=== PATIENT | male | born 2000 | race Caucasian/White ===

== ENCOUNTER 2021-10-27 11:28 | Emergency (ER) | payer OTHER ==
[~2021-10-27] VITALS: Ht 182.9 cm; Wt 81.6 kg
[2021-10-27] MEDS ORDERED: IV NS 0.9% 1,000 ML BAG IV ONE (11:30)
[2021-10-27] MEDS ORDERED: ONDANSETRON HCL/PF 4 MG/2 ML VIAL IVP ONE (11:30)
--- NOTE | 2021-10-27 11:41 | NUR ---
To ER bed 13, nausea and vomiting x 12 hrs,tested (+) to fentanyl this morning but denies he uses them, aaox3, breathing even and non labored, awaiting md tolliver
[2021-10-27 12:23] LABS: CALCIUM, SERUM 9.4 mg/dL (8.5-10.1); CREATININE 1.2 mg/dL (0.6-1.3); POTASSIUM 3.9 mmol/L (3.5-5.1)
[2021-10-27 12:26] LABS: BASOPHILS % (AUTO) 0.4 % (0.0-2.0); EOSINOPHILS % (AUTO) 0.3 % (0.0-6.0); HEMATOCRIT 43 % (39-51); HEMOGLOBIN 14.7 g/dL (13.5-17.5); LYMPHOCYTES % (AUTO) 19.1 % (20.0-44.0); MEAN CORPUSCULAR HGB CONC 34 g/dl (31.0-36.0); MEAN CORPUSCULAR VOLUME 91 fL (80-96); MONOCYTES # (AUTO) 0.8 K/uL (0.1-1.30); MONOCYTES % (AUTO) 7.2 % (2.0-12.0); NEUTROPHILS # (AUTO) 7.7 K/uL (1.8-8.9); PLATELET COUNT (AUTO) 237 K/uL (150-450); RED BLOOD CELL COUNT(AUTO) 4.67 MIL/uL (4.5-6.0); WHITE BLOOD COUNT (AUTO) 10.5 K/uL (4.3-11.0)
[2021-10-27 12:29] LABS: ALBUMIN 4.5 g/dL (3.4-5.0); BILIRUBIN,DIRECT 0.1 mg/dL (0.0-0.2); BILIRUBIN,TOTAL 0.4 mg/dL (0.2-1.0); TOTAL PROTEIN, SERUM 8.1 g/dL (6.4-8.2)
[2021-10-27] MEDS ORDERED: MAG HYDROX/AL HYDROX/SIMETH 30 ML UDC PO ONE (12:30)
[2021-10-27] MEDS ORDERED: LIDOCAINE VISCOUS 2% UD 15 ML UDC MM ONE (12:30)
[2021-10-27] MEDS ORDERED: FAMOTIDINE/PF INJ 20 MG/2 ML VIAL IV ONE ×2 (12:30→12:39)
[2021-10-27] MEDS ORDERED: LIDOCAINE VISCOUS 2% UD 15 ML UDC ONE (12:39)
[2021-10-27] MEDS ORDERED: ONDANSETRON HCL/PF 4 MG/2 ML VIAL ONE (12:39)
[2021-10-27] MEDS ORDERED: MAG HYDROX/AL HYDROX/SIMETH 30 ML UDC ONE (12:39)
--- NOTE | 2021-10-27 12:43 | NUR ---
URINE COLLECTED AND SENT TO LAB
[2021-10-27] MEDS ORDERED: NALO4SPR BNOSTRILS (13:01)
[2021-10-27] MEDS ORDERED: FAMO-131 PO (13:01)
[2021-10-27] MEDS ORDERED: ONDA4TAB5 PO (13:01)
[2021-10-27 13:27] LABS: BILIRUBIN,URINE SMALL (NEGATIVE); COLOR,URINE YELLOW (YELLOW); LEUKOCYTE ESTERASE ,URINE NEGATIVE (NEGATIVE); NITRITE, URINE NEGATIVE (NEGATIVE); PH,URINE 6.5 (5.0-8.0); PROTEIN,URINE 100 mg/dl (NEGATIVE); UGLUCOSE NEGATIVE (NEGATIVE); UROBILINOGEN,URINE 0.2 EU/dL (0.2)
[2021-10-27 13:45] LABS: BACTERIA,URINE Rare /HPF (None Seen); SQUAMOUS EPITHELIAL CELL,UR 0-2 /HPF (None Seen); WBC,URINE 0-2 /HPF (0-3)
[2021-10-27 13:46] LABS: RBC,URINE 0-2 /HPF (0-2)
--- NOTE | 2021-10-27 13:55 | NUR ---
IV removed. Catheter intact and site benign. Pressure and 4x4 applied to site. No bleeding noted.Patient discharged to home in stable condition. Written and verbal after care instructions given. Patient verbalizes understanding of instruction.
[2021-10-27 14:13] VITALS: BP 127/88
--- NOTE | 2021-11-06 10:39 | NUR ---
ADDENDUM 1000ML NORMAL SALINE ADMINISTERED 1241 L AC 20G, END TIME 1340.
== END 2021-10-27 14:14 | disposition home or self-care (01) ==
LOC: ER 11:30
DX: R10.13 Epigastric pain (principal); R11.2 Nausea with vomiting, unspecified; K50.90 Crohn's disease, unspecified, without complications; F12.90 Cannabis use, unspecified, uncomplicated; F11.20 Opioid dependence, uncomplicated
CPT/HCPCS: 36415; 80048; 80076; 81001; 83690; 85025; 96361; 96374; 96375; 99284; J2405; J3490; J7030

== ENCOUNTER 2021-11-26 08:27 | Emergency (ER) | payer OTHER ==
[~2021-11-26] VITALS: Ht 182.9 cm; Wt 77.6 kg
[~2021-11-26 08:27] MED LIST: FAMO-131 PO; NALO4SPR BNOSTRILS; ONDA4TAB5 PO
--- NOTE | 2021-11-26 08:27 | NUR ---
PT BIB FRIENDS C/O OD ON FENTANYL AND CODEINE. PT IS AAOX1, HOOKED TO O2 VIA RB AT 15LPM, HOOKED TO V/S MONITOR, KEPT RESTED AND COMFORTABLE. WILL CONTINUE TO MONITOR.
[2021-11-26] MEDS ORDERED: NALOXONE PREFILLED SYRINGE 2 MG/2 ML SYRINGE ONE (08:30)
--- NOTE | 2021-11-26 08:30 | NUR ---
IV LINE ESTABLISHED BLOOD DRAWN AND SENT TO LAB.
--- NOTE | 2021-11-26 08:30 | NUR ---
NARCAN 2 MG AND ZOFRAN 4MG IVP GIVEN ORDERED BY .
[2021-11-26] MEDS ORDERED: ONDANSETRON HCL/PF 4 MG/2 ML VIAL ONE (08:32)
--- NOTE | 2021-11-26 08:48 | NUR ---
URINE SPECIMEN COLLECTED AND SENT TO LAB.
[2021-11-26 09:13] LABS: BILIRUBIN,URINE NEGATIVE (NEGATIVE); COLOR,URINE YELLOW (YELLOW); LEUKOCYTE ESTERASE ,URINE NEGATIVE (NEGATIVE); NITRITE, URINE NEGATIVE (NEGATIVE); PH,URINE 5.5 (5.0-8.0); PROTEIN,URINE 100 mg/dl (NEGATIVE); UGLUCOSE >=1000 mg/dL (NEGATIVE); UROBILINOGEN,URINE 0.2 EU/dL (0.2)
[2021-11-26 09:13] LABS: BASOPHILS % (AUTO) 0.1 % (0.0-2.0); EOSINOPHILS % (AUTO) 0.1 % (0.0-6.0); HEMATOCRIT 44 % (39-51); LYMPHOCYTES # (AUTO) 1.8 K/uL (0.8-4.8); LYMPHOCYTES % (AUTO) 7.2 % (20.0-44.0); MEAN CORPUSCULAR HGB CONC 34 g/dl (31.0-36.0); MEAN CORPUSCULAR VOLUME 91 fL (80-96); MONOCYTES # (AUTO) 3.1 K/uL (0.1-1.30); MONOCYTES % (AUTO) 12.2 % (2.0-12.0); NEUTROPHILS # (AUTO) 20.4 K/uL (1.8-8.9); NEUTROPHILS % (AUTO) 80.4 % (43.0-81.0); PLATELET COUNT (AUTO) 385 K/uL (150-450); RED BLOOD CELL COUNT(AUTO) 4.88 MIL/uL (4.5-6.0); WHITE BLOOD COUNT (AUTO) 25.4 K/uL (4.3-11.0)
[2021-11-26 09:30] LABS: BACTERIA,URINE 2+ /HPF (None Seen)
--- NOTE | 2021-11-26 11:51 | NUR ---
PATIENT IS AAOX4. CONVERSANT.
[2021-11-26] MEDS ORDERED: NICOTINE PATCH (7MG) 7 MG PATCH.TD24 TD SCH (12:00)
--- NOTE | 2021-11-26 12:24 | NUR ---
PATIENT WANTS TO STEP OUTSIDE TO SMOKE. IT WAS DISCUSSED TO HIM THAT HE HAS PULMONARY EDEMA IN THE LUNGS AND IT IS C/I FOR HIM TO SMOKE. PATIENT STILL PERSIST. HE WOULD RATHER SIGN WAIVER OF AMA SO HE CAN GO OUT. DR NOE CAME TO EXPLAIN TO THE PATIENT THAT HE SHOULD BE ADMITTED. PATIENT REFUSED AND RATHER SIGN AMA.
--- NOTE | 2021-11-26 12:25 | NUR ---
AMA SIGNED. IV CANNULA REMOVED.
[2021-11-26 12:26] VITALS: BP 128/98
[2021-11-26 13:32] LABS: ALANINE AMINOTRANSFERASE 134 U/L (12-78); ALBUMIN 3.9 g/dL (3.4-5.0); ALCOHOL, BLOOD < 3 mg/dL (0-0); ASPARTATE AMINOTRANSFERASE 129 U/L (15-37); BILIRUBIN,TOTAL 0.1 mg/dL (0.2-1.0); CALCIUM, SERUM 8.7 mg/dL (8.5-10.1); CARBON DIOXIDE 17 mmol/L (21-32); CHLORIDE 108 mmol/L (98-107); CREATININE 2.2 mg/dL (0.6-1.3); GLUCOSE 82 mg/dL (74-106); POTASSIUM 4.6 mmol/L (3.5-5.1); SODIUM SERUM 143 mmol/L (136-145); TOTAL PROTEIN, SERUM 7.2 g/dL (6.4-8.2); UREA NITROGEN, BLOOD 21 mg/dL (7-18)
[2021-11-26 13:35] LABS: ACETAMINOPHEN < 10 ug/ml (10-30)
[2021-11-26 13:57] LABS: ALKALINE PHOSPHATASE < 10 U/L (46-116)
== END 2021-11-26 12:28 | disposition left against medical advice (07) ==
LOC: ER 08:34
DX: N17.8 Other acute kidney failure (principal); T40.411A Poisoning by fentanyl or fentanyl analogs, accidental (unintentional), initial encounter; R53.83 Other fatigue; R51.9 Headache, unspecified; J81.1 Chronic pulmonary edema; D72.829 Elevated white blood cell count, unspecified; R74.01 Elevation of levels of liver transaminase levels; Z87.19 Personal history of other diseases of the digestive system; Z79.899 Other long term (current) drug therapy; Y92.89 Other specified places as the place of occurrence of the external cause
CPT/HCPCS: 36415; 70450; 71045; 80048; 80076; 80143; 80307; 80320; 81001; 85025; 87086; 96374; 96375; 99285; J2310; J2405; G0480

== ENCOUNTER 2021-11-28 10:38 | Emergency (ER) | payer OTHER ==
[~2021-11-28] VITALS: Ht 185.4 cm; Wt 76.7 kg
--- NOTE | 2021-11-28 10:56 | NUR ---
BIBS FOR C/O COUGH AND CHEST THIGHTNESS X2 DAYS. THE PATIENT IS IN ROOM AIR AND DENIES SOB. OXYGEN SATURATION IN ROOM AIR IS AT 100%. RESPIRATION REGULAR AND UNLABORED. WILL CONTINUE TO MONITOR THE PATIENT.
--- NOTE | 2021-11-28 11:22 | NUR ---
pt sitting in bed comfortably. vs stable. will continue to monitor
[2021-11-28 11:45] LABS: BASOPHILS % (AUTO) 0.4 % (0.0-2.0); EOSINOPHILS % (AUTO) 1.3 % (0.0-6.0); HEMATOCRIT 39 % (39-51); LYMPHOCYTES # (AUTO) 1.3 K/uL (0.8-4.8); LYMPHOCYTES % (AUTO) 19.2 % (20.0-44.0); MEAN CORPUSCULAR HGB CONC 34 g/dl (31.0-36.0); MEAN CORPUSCULAR VOLUME 91 fL (80-96); MONOCYTES # (AUTO) 0.6 K/uL (0.1-1.30); MONOCYTES % (AUTO) 8.7 % (2.0-12.0); NEUTROPHILS # (AUTO) 4.9 K/uL (1.8-8.9); NEUTROPHILS % (AUTO) 70.4 % (43.0-81.0); PLATELET COUNT (AUTO) 220 K/uL (150-450); RED BLOOD CELL COUNT(AUTO) 4.24 MIL/uL (4.5-6.0)
[2021-11-28 12:10] LABS: CALCIUM, SERUM 8.7 mg/dL (8.5-10.1); CREATININE 0.9 mg/dL (0.6-1.3)
[2021-11-28 12:21] LABS: ALBUMIN 3.4 g/dL (3.4-5.0); BILIRUBIN,TOTAL 0.3 mg/dL (0.2-1.0); TOTAL PROTEIN, SERUM 6.8 g/dL (6.4-8.2)
--- NOTE | 2021-11-28 12:41 | NUR ---
Patient discharged to home in stable condition. Written and verbal after care instructions given. Patient verbalizes understanding of instruction.
[2021-11-28 12:42] VITALS: BP 123/74
== END 2021-11-28 12:42 | disposition home or self-care (01) ==
LOC: ER 10:42
DX: Z00.00 Encounter for general adult medical examination without abnormal findings (principal); R05.9 Cough, unspecified; R07.89 Other chest pain; F17.200 Nicotine dependence, unspecified, uncomplicated; Z87.19 Personal history of other diseases of the digestive system; Z79.899 Other long term (current) drug therapy
CPT/HCPCS: 36415; 71045-TC; 80053-TC; 85025-TC